=== PATIENT | male | born 1950 | race Hispanic/Latino ===

== ENCOUNTER 2017-06-20 11:32 | Emergency (ER) | payer MEDICARE ==
[2017-06-20 11:32] VITALS: BMI 31.9
[2017-06-20 11:44] VITALS: BP 130/83; PULSE 95; TEMP 97.8; O2SAT 95
[2017-06-20 12:37] LABS: SQUAMOUS EPITHIAL 1 /hpf (0-5); URINE BACTERIA RARE (<OCC); URINE BILIRUBIN NEGATIVE (NEGATIVE); URINE BLOOD 3+ (NEGATIVE); URINE CLARITY Hazy (Clear); URINE COLOR Yellow (YELLOW); URINE GLUCOSE (UA) 1+ mg/dL (Normal); URINE LEUKOCYTE ESTERASE 3+ Leu/uL (Negative); URINE PROTEIN 2+ mg/dL (NEGATIVE); URINE UROBILINOGEN NORMAL mg/dL (0.2-1.0)
--- NOTE | 2017-06-20 13:00 | C.PDOC ---
History Of Present Illness 66 year old male with PMHx of non insulin dependent DM presents to the ED c/o urinary frequency, urgency and dysuria for the past 3 days. Patient reports today he noticed a few drops of blood in his urine. Patient denies abdominal pain, back pain, nausea, vomit, diarrhea, fever, chills, penile discharge, penis rash, pain or swelling to penis or testes. he reports he is not sexually active. Time Seen by Provider: 06/20/17 12:12 Chief Complaint (Nursing): Male Genitourinary History Per: Patient History/Exam Limitations: no limitations Onset/Duration Of Symptoms: Days Current Symptoms Are (Timing): Still Present Quality Of Discomfort: "Pain" Associated Symptoms: Urinary Symptoms Recent travel outside of the [place]: No Additional History Per: Patient Past Medical History Reviewed: Historical Data, Nursing Documentation, Vital Signs Vital Signs: Last Vital Signs Temp 97.8 F 06/20/17 11:42 Pulse 95 H 06/20/17 11:42 Resp 20 06/20/17 13:09 BP 130/83 06/20/17 11:42 Pulse Ox 95 06/20/17 16:53 - Medical History PMH: Arthritis, Benign Prostatic Hyperplasia Surgical History: No Surg Hx Family History: States: Unknown Family Hx - Social History Hx Alcohol Use: No Hx Substance Use: No - Immunization History Hx Tetanus Toxoid Vaccination: No Hx Influenza Vaccination: No Hx Pneumococcal Vaccination: No Review Of Systems Constitutional: Negative for: Fever, Chills Gastrointestinal: Negative for: Nausea, Vomiting, Abdominal Pain Genitourinary: Positive for: Dysuria, Frequency, Hematuria. Negative for: Penile Discharge, Scrotal Pain, Penile Pain Musculoskeletal: Negative for: Back Pain Skin: Negative for: Rash Physical Exam - Physical Exam Appears: Non-toxic, No Acute Distress Skin: Normal Color, Warm, Dry Head: Atraumatic, Normacephalic Eye(s): bilateral: Normal Inspection Nose: No Discharge Oral Mucosa: Moist Neck: Normal ROM, Supple Chest: Symmetrical Cardiovascular: Rhythm Regular, No Murmur Respiratory: Normal Breath Sounds, No Rales, No Rhonchi Gastrointestinal/Abdominal: Soft, No Tenderness, No Guarding, No Rebound Back: No CVA Tenderness Extremity: Normal ROM, No Tenderness, No Swelling Neurological/Psych: Oriented x3, Normal Speech, Normal Cognition Gait: Steady ED Course And Treatment O2 Sat by Pulse Oximetry: 95 (ON RA) Pulse Ox Interpretation: Normal Medical Decision Making Medical Decision Making: Impression: dysuria, hematuria, urinary frequency Plan: * UA * urine culture urinary symptoms, will tx for uti. Disposition Counseled Patient/Family Regarding: Studies Performed, Diagnosis, Need For Followup, Rx Given - Disposition Referrals: Natalie Zurita MD [Medical Doctor] - Disposition: HOME/ ROUTINE Disposition Time: 12:58 Condition: GOOD Additional Instructions: Please follow up with your doctor in a few days; recommend referral to a urologist. Take antibiotics as prescribed. Drink increased water. Return to ER for any worsening symptoms, fever or other concerns. Prescriptions: Ciprofloxacin HCl [Cipro] 500 mg PO BID #14 tablet Instructions: Urinary Tract Infection, Adult (DC) Forms: [facility] (Bangladeshi), General Discharge Instructions - Clinical Impression Clinical Impression: UTI (urinary tract infection) - PA / POPULATION GENETICIST / Resident Statement MD/DO has reviewed & agrees with the documentation as recorded. - Scribe Statement The provider has reviewed the documentation as recorded by the Scribe Ken Brantely All medical record entries made by the Marybethibdeanna were at my direction and personally dictated by me. I have reviewed the chart and agree that the record accurately reflects my personal performance of the history, physical exam, medical decision making, and the department course for this patient. I have also personally directed, reviewed, and agree with the discharge instructions and disposition.
[2017-06-20 13:09] VITALS: RESP 20
== END 2017-06-20 13:09 | disposition home or self-care (01) ==
LOC: C.ER 11:32
DX: N39.0 Urinary tract infection, site not specified (principal)